=== PATIENT | female | born 1975 | race Caucasian/White ===

== ENCOUNTER 2020-05-05 13:43 | Outpatient (RCR) | payer OTHER ==
[~2020-05-05 13:43] MED LIST: AMBIEN 10MG10 MG PO; HUMIRA40 MG/0.8 MR; MULTI VITAMINS1 TAB PO; ZOLOFT25 MG PO
== END 2020-06-02 | disposition home or self-care (01) ==
LOC: WSOH
DX: M25.512 Pain in left shoulder (principal); E03.9 Hypothyroidism, unspecified; L40.9 Psoriasis, unspecified; Z98.890 Other specified postprocedural states; Y99.0 Civilian activity done for income or pay; Z90.710 Acquired absence of both cervix and uterus

== ENCOUNTER 2020-05-28 09:41 | Outpatient (RCR) | payer OTHER | END 2020-06-02 | LOC: WSPT | DX: M25.512 Pain in left shoulder (principal) ==

== ENCOUNTER 2020-06-25 09:45 | Outpatient (RCR) | payer OTHER | END 2020-07-15 09:13 | disposition home or self-care (01) | LOC: WSPT 09:45 | DX: M25.512 Pain in left shoulder (principal); M79.622 Pain in left upper arm ==

== ENCOUNTER → 2021-09-21 | Outpatient (CLI) | payer BC, OTHER | LOC: MC.RAD 08:06 | DX: Z12.31 Encounter for screening mammogram for malignant neoplasm of breast (principal) ==

== ENCOUNTER → 2021-10-29 | Outpatient (CLI) | payer BC, OTHER | LOC: COL.CARD 07:56 | DX: R00.2 Palpitations (principal) ==

== ENCOUNTER → 2021-12-10 | Outpatient (CLI) | payer BC, OTHER | LOC: COL.RAD 11:32 | DX: K76.0 Fatty (change of) liver, not elsewhere classified (principal) ==

== ENCOUNTER → 2021-12-23 | Outpatient (CLI) | payer BC, OTHER | LOC: COL.RAD 06:46 | DX: R10.11 Right upper quadrant pain (principal) | CPT/HCPCS: A9537; J2805 ==